=== PATIENT | female | born 1965 | race Caucasian/White ===

== ENCOUNTER → 2017-10-09 | Outpatient (CLI) | payer BC ==
[~2017-10-09] MED LIST: ACET-1600 PO; COLAGEN PO
[2017-10-09 15:10] LABS: MICROSCOPIC NOT IND
[2017-10-09 15:17] LABS: CULTURE INDICATED? NO
[2017-10-09 15:18] LABS: BASOPHILS # (AUTO) 0.02 x10^3/uL (0-0.1); BASOPHILS % (AUTO) 0 % (0-1); EOSINOPHILS # (AUTO) 0.17 x10^3/uL (0-0.4); EOSINOPHILS % (AUTO) 2 % (1-7); LYMPHOCYTES # (AUTO) 2.35 x10^3/uL (1-3.4); LYMPHOCYTES % (AUTO) 26 % (22-44); MD NO; MEAN CORPUSCULAR HEMOGLOBIN 28.7 pg (27.0-34.8); MEAN CORPUSCULAR HGB CONC 33.7 g/dL (32.4-35.8); MEAN CORPUSCULAR VOLUME 85.1 fL (80-100); MEAN PLATELET VOLUME 9.6 fL (7.4-10.4); MONOCYTES # (AUTO) 0.69 x10^3/uL (0.2-0.8); MONOCYTES % (AUTO) 8 % (2-9); NEUTROPHILS # (AUTO) 5.83 x10^3/uL (1.8-6.8); NEUTROPHILS % (AUTO) 64 % (42-75); PLATELET COUNT 272 x10^3/uL (130-400); RED BLOOD COUNT 5.34 x10^6/uL (3.82-5.3); RED CELL DISTRIBUTION WIDTH 13.8 % (9.6-15.2)
== END | disposition home or self-care (01) ==
LOC: STAR 14:03
PROVIDERS: ATTEND Obstetrics & Gynecology Maternal & Fetal Medicine
DX: Z01.818 Encounter for other preprocedural examination (principal); N80.9 Endometriosis, unspecified; N94.6 Dysmenorrhea, unspecified; R10.2 Pelvic and perineal pain
CPT/HCPCS: 36415; 81003; 84703; 85025

== ENCOUNTER 2017-10-17 13:08 | Day surgery (SDC) | payer BC ==
[~2017-10-17] VITALS: Ht 162.6 cm; Wt 87.2 kg
[2017-10-17] MEDS ORDERED: LACTATED RINGERS 1,000 ML IV SCH (13:34)
[2017-10-17 13:41] VITALS: BP 119/85
[2017-10-17 13:57] LABS: HCG UR SG 1.023 (1.003-1.030)
[2017-10-17] MEDS ORDERED: LIDOCAINE-MPF 1%, 2ML INFIL ONE (14:00)
[2017-10-17] MEDS ORDERED: BUPIVACAINE/PF-EPI 0.25% 1:200K ONE (14:06)
[2017-10-17] MEDS ORDERED: NEOSPORIN OINT, 15GM ONE (14:06)
[2017-10-17] MEDS ORDERED: MIDAZOLAM 1 MG/ML, 2ML ONE (15:55)
[2017-10-17] MEDS ORDERED: FENTANYL PF 250 MCG/5ML ONE (15:55)
[2017-10-17] MEDS ORDERED: PROPOFOL 50 ML ONE (16:26)
[2017-10-17] MEDS ORDERED: CEFAZOLIN 1,000 MG ONE (17:15)
[2017-10-17] MEDS ORDERED: NEOSTIGMINE 1 MG/ML, 10ML ONE (17:15)
[2017-10-17] MEDS ORDERED: ROCURONIUM 10MG/ML,5ML ONE (17:15)
[2017-10-17] MEDS ORDERED: SUCCINYLCHOLINE 20 MG/ML, 10ML ONE (17:15)
[2017-10-17] MEDS ORDERED: PROPOFOL 10 MG/ML, 20ML ONE (17:15)
[2017-10-17] MEDS ORDERED: ONDANSETRON 2MG/ML, 2ML ONE (17:15)
[2017-10-17] MEDS ORDERED: GLYCOPYRROLATE 0.2MG/1ML, 5ML ONE (17:15)
[2017-10-17] MEDS ORDERED: DEXAMETHASONE 4 MG/ML, 1ML ONE (17:15)
[2017-10-17] MEDS ORDERED: FENTANYL PF 100 MCG/2ML IV PRN (17:30)
[2017-10-17] MEDS ORDERED: OXYcodone 5 MG/5 ML ORAL.SOL UDC PO PRN (17:30)
[2017-10-17] MEDS ORDERED: PROMETHAZINE 25 MG/ML, 1ML IV PRN (17:30)
[2017-10-17] MEDS ORDERED: KETOROLAC 30 MG/1 ML ONE (17:30)
[2017-10-17] MEDS ORDERED: KETOROLAC 30 MG/1 ML IV PRN (17:30)
[2017-10-17] MEDS ORDERED: OXYcodone 5 MG/5 ML ORAL.SOL UDC ONE (17:30)
[2017-10-17] MEDS ORDERED: ACETAMINOPHEN 650 MG/20.3 ML UDC ONE (17:30)
[2017-10-17] MEDS ORDERED: FENTANYL PF 100 MCG/2ML ONE (17:30)
[2017-10-17] MEDS ORDERED: ONDANSETRON ODT 8 MG PO PRN (17:30)
[2017-10-17] MEDS ORDERED: MORPHINE SULFATE 4 MG/ML, 1ML IVPush PRN (17:30)
[2017-10-17] MEDS ORDERED: ONDANSETRON 2MG/ML, 2ML IV PRN (17:30)
[2017-10-17] MEDS ORDERED: ACETAMINOPHEN 325 MG TABLET PO PRN (17:30)
== END 2017-10-17 18:59 | disposition home or self-care (01) ==
LOC: OUT 13:08 → 4NOR 18:11 → OUT 18:59
PROVIDERS: ATTEND Obstetrics & Gynecology Maternal & Fetal Medicine
DX: N94.6 Dysmenorrhea, unspecified (principal); Z79.899 Other long term (current) drug therapy; Z79.891 Long term (current) use of opiate analgesic; N80.9 Endometriosis, unspecified
CPT/HCPCS: 58662; 81025; J0330; J0690; J1100; J1885; J2250; J2405; J2704; J2710; J3010; J3490; J7120

== ENCOUNTER 2018-10-31 14:58 | Outpatient (CLI) | payer BC | END 2018-10-31 23:59 | disposition home or self-care (01) | LOC: STAR 14:58 | PROVIDERS: ATTEND Obstetrics & Gynecology Maternal & Fetal Medicine | DX: Z01.818 Encounter for other preprocedural examination (principal); N80.9 Endometriosis, unspecified; N94.6 Dysmenorrhea, unspecified | CPT/HCPCS: 36415; 80053; 81003; 84702; 85025 ==